=== PATIENT | male | born 1995 | race African-American/Black ===

== ENCOUNTER → 2018-01-20 | Outpatient (CLI) | payer OTHER ==
--- NOTE | 2018-01-20 08:22 | DIAGNOSTIC IMAGING REPORT ---
MRI THE RIGHT KNEE NO CONTRAST CLINICAL HISTORY: RIGHT KNEE PAIN COMPARISON STUDY: No previous studies for comparison. FINDINGS: Imaging was performed in sagittal, coronal, and axial planes. The patellar retinacular structures appear intact. The quadriceps and patellar tendons appear intact. The anterior and posterior crucial ligaments appear intact. No meniscal tears are visualized. The medial and lateral collateral ligaments appear intact. There is a small fissure within the cartilage of the lateral patellar facet with subjacent marrow edema. IMPRESSION: 1. Small fissure within the cartilage of the lateral patellar facet with subjacent marrow edema 2. No evidence of meniscal tear. 3. No evidence of cruciate or collateral ligament injury Electronically signed by: Panfilo Montana M.D. 01/20/2018 8:21 AM Dictated Date/Time: 01/20/2018 8:16 AM
== END | disposition home or self-care (01) ==
LOC: C.MRI 07:33
PROVIDERS: ATTEND Orthopaedic Surgery Sports Medicine
DX: M25.561 Pain in right knee (principal)